=== PATIENT | female | born 1940 | race Caucasian/White ===

== ENCOUNTER 2017-11-25 09:30 | Inpatient (IN) | payer OTHER ==
[~2017-11-25] VITALS: Ht 162.6 cm; Wt 101.1 kg
[~2017-11-25 09:30] MED LIST: ACET-2247 PO; ALLO100T PO; B-COMPLEX PO; CALC600T12 PO; DUONEB IH; FLUT1AER IH; FOLI1TAB15 PO; FURO20TA6 PO; LEVO125T11 PO; METO100T14 PO; OXYGEN NASAL; POTA20PA3 PO; VALS1TAB75 PO; WARF1TAB83 PO; [UNRECOGNIZED DRUG - OTHER] PO
[2017-11-25] MEDS ORDERED: ASPIRIN 325 MG TABLET ONE (09:53)
[2017-11-25] MEDS ORDERED: METOPROLOL TARTRATE 1 MG/ML 5ML VIAL IV ONE ×2 (10:07→11:02)
[2017-11-25 10:14] LABS: BASOPHILS % (AUTO) 1.3 % (0.0-5.0); EOSINOPHILS % (AUTO) 0.8 % (0.0-8.0); HEMATOCRIT 47.5 % (36-48); MEAN CORPUSCULAR HGB CONC 34.2 g/dL (32.0-36.0); MEAN CORPUSCULAR VOLUME 87.8 fL (79-99); MONOCYTES % (AUTO) 7.6 % (3.0-13.0); NEUTROPHILS % (AUTO) 74.3 % (40.0-77.0); PLATELET COUNT (AUTO) 165 K/uL (130-400); RED CELL DISTRIBUTION WIDTH 14.4 % (11.0-15.5); WHITE BLOOD COUNT (AUTO) 7.8 K/uL (4.8-10.8)
[2017-11-25 10:31] LABS: INR 2.61 (0.85-1.15); PROTHROMBIN TIME 26.9 SEC (9.6-11.6)
[2017-11-25 10:35] LABS: POTASSIUM 4.6 mmol/L (3.5-5.1)
[2017-11-25 10:40] LABS: ALBUMIN 3.5 g/dL (3.5-5.0); BILIRUBIN,TOTAL 1.4 mg/dL (0.2-1.0); CREATININE 1.3 mg/dL (0.5-1.5); TOTAL PROTEIN, SERUM 6.8 g/dL (6.0-8.3)
[2017-11-25 10:55] LABS: B-TYPE NATRIURETIC PEPTIDE 85 pg/mL (0-100)
[2017-11-25] MEDS ORDERED: AMIODARONE HCL 900 MG in DEXTROSE 5%-WATER 500 ML IV NR (17:15)
[2017-11-25 19:05] VITALS: BP 163/95
[2017-11-25] MEDS ORDERED: METOPROLOL TARTRATE 1 MG/ML 5ML VIAL IV PRN (19:45)
[2017-11-25] MEDS ORDERED: METOPROLOL TARTRATE 25 MG TAB PO SCH (21:00)
[2017-11-25] MEDS ORDERED: SPIR50TA PO (21:53)
[2017-11-25] MEDS ORDERED: TRAM50TA4 PO (21:55)
[2017-11-25 23:05] VITALS: BP 139/90
[2017-11-26 03:05] VITALS: BP 149/83
[2017-11-26 04:44] LABS: HEMATOCRIT 42.1 % (36-48); MEAN CORPUSCULAR HEMOGLOBIN 31.2 pg (27.0-33.0); MEAN CORPUSCULAR HGB CONC 35.6 g/dL (32.0-36.0); MEAN CORPUSCULAR VOLUME 87.7 fL (79-99); PLATELET COUNT (AUTO) 143 K/uL (130-400); RED BLOOD CELL COUNT(AUTO) 4.81 MIL/uL (4.00-5.50); RED CELL DISTRIBUTION WIDTH 14.5 % (11.0-15.5); WHITE BLOOD COUNT (AUTO) 7.3 K/uL (4.8-10.8)
[2017-11-26 04:55] LABS: POTASSIUM 3.8 mmol/L (3.5-5.1)
[2017-11-26 08:06] VITALS: BP 166/97
[2017-11-26] MEDS ORDERED: ENOXAPARIN SODIUM 40 MG/0.4 ML SYRINGE SQ SCH (09:00)
[2017-11-26] MEDS ORDERED: ACETAMINOPHEN 325 MG TAB PO PRN (09:45)
[2017-11-26 11:52] VITALS: BP 150/75
[2017-11-26] MEDS ORDERED: WARFARIN SODIUM 1 MG TAB PO SCH (16:00)
[2017-11-26 17:24] VITALS: BP 171/97
[2017-11-26] MEDS ORDERED: ALBUTEROL SULFATE 0.083% 2.5 MG/3 ML INH IH SCH (18:30)
[2017-11-26 19:49] VITALS: BP 149/85
[2017-11-26] MEDS: METOPROLOL TARTRATE 50 MG TAB PO SCH (20:28)
[2017-11-26] MEDS ORDERED: OXYGEN NASAL SCH (21:00)
[2017-11-26] MEDS ORDERED: ALLOPURINOL 100 MG TABLET PO SCH (21:00)
[2017-11-26] MEDS ORDERED: CALCIUM 600 + VITAMIN D 400 TABLET PO SCH (21:00)
[2017-11-26] MEDS ORDERED: METOPROLOL TARTRATE 50 MG TAB PO SCH (21:00)
[2017-11-27] VITALS: BP 156/73
[2017-11-27 04:47] LABS: BASOPHILS % (AUTO) 0.6 % (0.0-5.0); EOSINOPHILS % (AUTO) 2.2 % (0.0-8.0); HEMATOCRIT 41.8 % (36-48); LYMPHOCYTES % (AUTO) 17.6 % (21.0-51.0); MEAN CORPUSCULAR HEMOGLOBIN 29.9 pg (27.0-33.0); MEAN CORPUSCULAR HGB CONC 34.2 g/dL (32.0-36.0); MEAN CORPUSCULAR VOLUME 87.4 fL (79-99); MONOCYTES % (AUTO) 6.9 % (3.0-13.0); NEUTROPHILS % (AUTO) 72.7 % (40.0-77.0); PLATELET COUNT (AUTO) 141 K/uL (130-400); RED BLOOD CELL COUNT(AUTO) 4.79 MIL/uL (4.00-5.50); RED CELL DISTRIBUTION WIDTH 14.2 % (11.0-15.5); WHITE BLOOD COUNT (AUTO) 6.8 K/uL (4.8-10.8)
[2017-11-27 04:58] LABS: INR 2.11 (0.85-1.15); PROTHROMBIN TIME 21.8 SEC (9.6-11.6)
[2017-11-27 05:07] VITALS: BP 160/79
[2017-11-27] MEDS ORDERED: ALBUTEROL SULFATE 0.083% 2.5 MG/3 ML INH IH PRN (07:00)
[2017-11-27] MEDS ORDERED: LEVOTHYROXINE 125 MCG TABLET PO SCH (07:30)
[2017-11-27 08:06] VITALS: BP 151/96
[2017-11-27] MEDS ORDERED: SPIRONOLACTONE 25 MG TAB PO SCH (09:00)
[2017-11-27] MEDS ORDERED: FOLIC ACID 1 MG TABLET PO SCH (09:00)
[2017-11-27] MEDS ORDERED: FOLIC ACID/VITAMIN B COMP W-C 1 MG CAPSULE PO SCH (09:00)
[2017-11-27] MEDS ORDERED: TRAMADOL HCL 50 MG TABLET PO SCH (09:00)
[2017-11-27] MEDS ORDERED: LOSARTAN/HYDROCHLOROTHIAZIDE 50-12.5MG TABLET PO SCH (09:00)
[2017-11-27] MEDS ORDERED: DILTIAZEM HCL 60 MG TABLET PO SCH (10:00)
[2017-11-27] MEDS: METOPROLOL TARTRATE 50 MG TAB PO SCH (10:21)
== END 2017-11-27 12:56 | disposition home or self-care (01) | DRG 309 ==
LOC: EDH 09:30 → EDHIP 14:30 → 2DH 18:08
PROVIDERS: ADMIT Family Medicine; ATTEND Family Medicine
DX: I48.0 Paroxysmal atrial fibrillation (principal); D68.59 Other primary thrombophilia; I82.509 Chronic embolism and thrombosis of unspecified deep veins of unspecified lower extremity; E11.9 Type 2 diabetes mellitus without complications; Z99.3 Dependence on wheelchair; E66.9 Obesity, unspecified; E78.5 Hyperlipidemia, unspecified; I10 Essential (primary) hypertension; J45.909 Unspecified asthma, uncomplicated; I25.10 Atherosclerotic heart disease of native coronary artery without angina pectoris; M19.90 Unspecified osteoarthritis, unspecified site; Z79.82 Long term (current) use of aspirin; Z88.8 Allergy status to other drugs, medicaments and biological substances; Z68.38 Body mass index [BMI] 38.0-38.9, adult; Z79.01 Long term (current) use of anticoagulants; Z79.899 Other long term (current) drug therapy; Z90.710 Acquired absence of both cervix and uterus; Z86.718 Personal history of other venous thrombosis and embolism; Z86.711 Personal history of pulmonary embolism; Z83.3 Family history of diabetes mellitus; Z82.49 Family history of ischemic heart disease and other diseases of the circulatory system
CPT/HCPCS: 36415; 71045; 80048; 80053; 82550; 82948; 83880; 84484; 85025; 85027; 85610; 85730; 93005; 94664; 99291; J0282; J3490; J7060

== ENCOUNTER → 2020-12-31 | Outpatient (CLI) | payer MEDICARE ==
[~2020-12-31] MED LIST changes: +ALBU0.63 IH; +APIX5TAB PO; +ASCO100033 PO; +CALC-1125 PO; -CALC600T12 PO; +CARB1DRO6 OP; +CHOL4PAC21 PO; -DUONEB IH; -FLUT1AER IH; +FLUT5POW4 MC; -FURO20TA6 PO; +ISOS10TA8 PO; +MAGN400C PO; +MELA10TA PO; +METO-408 PO; +NITR0.4T50 SL; -POTA20PA3 PO; +SPIR50TA PO; +TRAM50TA4 PO; -VALS1TAB75 PO; +VALS1TAB76 PO; +vitamin D PO
== END | disposition home or self-care (01) ==
LOC: LAB 11:31
PROVIDERS: ATTEND Internal Medicine Gastroenterology
DX: R19.7 Diarrhea, unspecified (principal)
CPT/HCPCS: 36415; 82656

== ENCOUNTER 2021-01-01 11:53 | Observation (INO) | payer MEDICARE ==
[~2021-01-01] VITALS: Ht 162.6 cm; Wt 92.8 kg
[2021-01-01] VITALS (7 sets, daily range): BP systolic 126–154; BP diastolic 61–77
[~2021-01-01 11:53] MED LIST changes: -ALBU0.63 IH; -APIX5TAB PO; -ASCO100033 PO; -CARB1DRO6 OP; -CHOL4PAC21 PO; -FLUT5POW4 MC; -ISOS10TA8 PO; -MAGN400C PO; -MELA10TA PO; -METO-408 PO; -NITR0.4T50 SL; -vitamin D PO
[2021-01-01] MEDS ORDERED: MECLIZINE HCL 25 MG TABLET ONE (12:11)
[2021-01-01] MEDS ORDERED: MECLIZINE HCL 25 MG TABLET PO SCH (12:30)
[2021-01-01 12:37] LABS: BASOPHILS % (AUTO) 0.4 % (0.0-5.0); EOSINOPHILS % (AUTO) 0.2 % (0.0-8.0); HEMATOCRIT 46.4 % (36-48); LYMPHOCYTES % (AUTO) 4.6 % (21.0-51.0); MEAN CORPUSCULAR HGB CONC 32.8 g/dL (32.0-36.0); MEAN CORPUSCULAR VOLUME 91.7 fL (79-99); MONOCYTES % (AUTO) 5.3 % (3.0-13.0); PLATELET COUNT (AUTO) 105 K/uL (130-400); RED BLOOD CELL COUNT(AUTO) 5.06 MIL/uL (4.00-5.50); RED CELL DISTRIBUTION WIDTH 14.7 % (11.0-15.5)
[2021-01-01 12:58] LABS: B-TYPE NATRIURETIC PEPTIDE 149 pg/mL (0-100)
[2021-01-01 13:31] LABS: ALBUMIN 3.5 g/dL (3.5-5.0); BILIRUBIN,TOTAL 2.2 mg/dL (0.2-1.0); CREATININE 1.3 mg/dL (0.5-1.5); POTASSIUM 4.6 mmol/L (3.5-5.1); TOTAL PROTEIN, SERUM 6.2 g/dL (6.0-8.3)
[2021-01-01] MEDS ORDERED: IOHEXOL-350 75 ML VIAL IV ONE (16:57)
[2021-01-01] MEDS ORDERED: ACETAMINOPHEN 325 MG TAB PO PRN (20:00)
[2021-01-01] MEDS: 0.9%NACL 1000ML 1,000 ML IV SCH (20:00)
[2021-01-01] MEDS ORDERED: HYDRALAZINE 20MG/ML VIAL IV PRN (20:00)
[2021-01-01] MEDS ORDERED: ONDANSETRON 4MG INJ IV PRN (20:00)
[2021-01-01] MEDS ORDERED: MECLIZINE HCL 25 MG TABLET PO PRN (20:00)
[2021-01-01] MEDS: HEPARIN 5,000 UNIT VIAL SQ SCH (21:00)
[2021-01-01] MEDS: FAMOTIDINE 20MG TAB PO SCH (21:00)
[2021-01-02] VITALS (9 sets, daily range): BP systolic 137–184; BP diastolic 65–81
[2021-01-02] MEDS: 0.9%NACL 1000ML 1,000 ML IV SCH (03:04)
[2021-01-02 06:11] LABS: BASOPHILS % (AUTO) 0.6 % (0.0-5.0); EOSINOPHILS % (AUTO) 1.2 % (0.0-8.0); HEMATOCRIT 42.6 % (36-48); LYMPHOCYTES % (AUTO) 17.3 % (21.0-51.0); MEAN CORPUSCULAR HGB CONC 32.9 g/dL (32.0-36.0); MEAN CORPUSCULAR VOLUME 91.4 fL (79-99); MONOCYTES % (AUTO) 10.7 % (3.0-13.0); PLATELET COUNT (AUTO) 80 K/uL (130-400); RED BLOOD CELL COUNT(AUTO) 4.66 MIL/uL (4.00-5.50); RED CELL DISTRIBUTION WIDTH 14.6 % (11.0-15.5)
[2021-01-02 06:19] LABS: HEMOGLOBIN A1C 5.5 % (4.0-6.0)
[2021-01-02 06:35] LABS: CREATININE 1.2 mg/dL (0.5-1.5); MAGNESIUM 1.8 mg/dL (1.80-2.40); PHOSPHORUS 2.7 mg/dL (2.5-4.9); POTASSIUM 3.5 mmol/L (3.5-5.1); THYROID STIMULATING HORMONE 1.07 uIU/mL (0.36-3.74)
[2021-01-02] MEDS: HEPARIN 5,000 UNIT VIAL SQ SCH ×2 (09:00→21:00)
[2021-01-02] MEDS ORDERED: APIX5TAB PO (12:51)
[2021-01-02] MEDS ORDERED: METO-408 PO (12:51)
[2021-01-02] MEDS ORDERED: CHOL4PAC21 PO (13:01)
[2021-01-02] MEDS ORDERED: MAGN400C PO (13:01)
[2021-01-02] MEDS ORDERED: MELA10TA PO (13:01)
[2021-01-02] MEDS ORDERED: ASCO100033 PO (13:01)
[2021-01-02] MEDS ORDERED: ISOS10TA8 PO (13:01)
[2021-01-02] MEDS ORDERED: FLUT5POW4 MC (13:14)
[2021-01-02] MEDS ORDERED: vitamin D PO (13:14)
[2021-01-02] MEDS ORDERED: CARB1DRO6 OP (13:14)
[2021-01-02] MEDS ORDERED: NITR0.4T50 SL (13:14)
[2021-01-02] MEDS ORDERED: ALBU0.63 IH (13:14)
[2021-01-02] MEDS ORDERED: NITROGLYCERIN 0.4 MG SL TAB SL PRN (16:00)
[2021-01-02] MEDS ORDERED: ACETAMINOPHEN 325 MG TAB PO PRN (16:00)
[2021-01-02] MEDS ORDERED: ARTIFICAL TEARS SOL 15 ML OP PRN (16:00)
[2021-01-02] MEDS ORDERED: FLUTICASONE PROPIONATE 50MCG/SPRAY 16 GM BOTTLE NS PRN (16:00)
[2021-01-02] MEDS: ISOSORBIDE MONONITRATE 20 MG TABLET PO SCH (16:27)
[2021-01-02] MEDS ORDERED: METOPROLOL SUCCINATE 50 MG TAB.SR.24H PO SCH (21:00)
[2021-01-02] MEDS: CEFTRIAXONE 1G VIAL IVP SCH (21:07)
[2021-01-02] MEDS: ALLOPURINOL 100 MG TABLET PO SCH (21:08)
[2021-01-02] MEDS: MAGNESIUM OXIDE 400 MG TABLET PO SCH (21:08)
[2021-01-02] MEDS: APIXABAN 5 MG TABLET PO SCH (21:08)
[2021-01-02] MEDS: ASCORBIC ACID 500 MG TAB PO SCH (21:08)
[2021-01-02] MEDS: CA 600MG+VIT D 400 UNIT TAB 1 TAB TABLET PO SCH (21:08)
[2021-01-02] MEDS: FAMOTIDINE 20MG TAB PO SCH (21:08)
[2021-01-02 21:23] LABS: APPEARANCE,URINE Clear (CLEAR); BILIRUBIN,URINE Negative (NEGATIVE); COLOR,URINE Yellow (YELLOW); GLUCOSE, URINE (UA) Negative (NEGATIVE); KETONES,URINE Trace mg/dL (NEGATIVE); LEUKOCYTE ESTERASE ,URINE Negative (NEGATIVE); NITRATE,URINE Negative (NEGATIVE); OCCULT BLOOD,URINE Negative (NEGATIVE); PH,URINE 5.5 (5.0-8.0); PROTEIN,URINE Negative (NEGATIVE); UROBILINOGEN,URINE 0.2 mg/dL (0.2-1.0)
[2021-01-02] MEDS: ALBUTEROL 0.042% 1.25MG/3ML IH PRN (21:32)
[2021-01-03] VITALS (11 sets, daily range): BP systolic 135–202; BP diastolic 66–97
[2021-01-03] MEDS: 0.9%NACL 1000ML 1,000 ML IV SCH (05:20)
[2021-01-03 05:47] LABS: HEMATOCRIT 40.9 % (36-48); MEAN CORPUSCULAR HGB CONC 33.5 g/dL (32.0-36.0); MEAN CORPUSCULAR VOLUME 89.7 fL (79-99); RED BLOOD CELL COUNT(AUTO) 4.56 MIL/uL (4.00-5.50); RED CELL DISTRIBUTION WIDTH 14.5 % (11.0-15.5)
[2021-01-03] MEDS ORDERED: LEVOTHYROXINE 125 MCG TABLET ONE (05:51)
[2021-01-03] MEDS: LEVOTHYROXINE 125 MCG TABLET PO SCH (06:26)
[2021-01-03 08:01] LABS: POTASSIUM 3.4 mmol/L (3.5-5.1)
[2021-01-03] MEDS: MELATONIN 20 MG PO SCH (09:00)
[2021-01-03] MEDS: CHOLESTYRAMINE PACKET 4 GM PACKET PO SCH (09:20)
[2021-01-03] MEDS: APIXABAN 5 MG TABLET PO SCH ×2 (09:21→19:50)
[2021-01-03] MEDS: ALLOPURINOL 100 MG TABLET PO SCH ×2 (09:21→19:51)
[2021-01-03] MEDS: ISOSORBIDE MONONITRATE 20 MG TABLET PO SCH (09:21)
[2021-01-03] MEDS: METOPROLOL SUCCINATE 50 MG TAB.SR.24H PO SCH ×2 (09:23→19:51)
[2021-01-03] MEDS: FAMOTIDINE 20MG TAB PO SCH (19:50)
[2021-01-03] MEDS: CA 600MG+VIT D 400 UNIT TAB 1 TAB TABLET PO SCH (19:50)
[2021-01-03] MEDS: ASCORBIC ACID 500 MG TAB PO SCH (19:50)
[2021-01-03] MEDS: MAGNESIUM OXIDE 400 MG TABLET PO SCH (19:51)
[2021-01-03] MEDS: CEFTRIAXONE 1G VIAL IVP SCH (19:51)
[2021-01-03] MEDS: ALBUTEROL 0.042% 1.25MG/3ML IH PRN (23:12)
[2021-01-04 03:12] VITALS: BP 156/74
[2021-01-04 05:17] LABS: ABG BASE EXCESS 0.2 mmol/L (-2.0-3.0); ABG HCO3 25.9 mmol/L (21.0-28.0); ABG OXYGEN SATURATION 98.4 % (95.0-99.0); ABG PCO2 46 mmHg (32-45)
[2021-01-04] MEDS: LEVOTHYROXINE 125 MCG TABLET PO SCH (05:43)
[2021-01-04 07:32] VITALS: BP 169/76
[2021-01-04] MEDS: CHOLESTYRAMINE PACKET 4 GM PACKET PO SCH (08:31)
[2021-01-04] MEDS: APIXABAN 5 MG TABLET PO SCH (08:32)
[2021-01-04] MEDS: METOPROLOL SUCCINATE 50 MG TAB.SR.24H PO SCH (08:33)
[2021-01-04] MEDS: ALLOPURINOL 100 MG TABLET PO SCH (08:33)
[2021-01-04] MEDS: ISOSORBIDE MONONITRATE 20 MG TABLET PO SCH (08:34)
[2021-01-04] MEDS: MELATONIN 20 MG PO SCH (08:43)
[2021-01-04 08:59] LABS: CREATININE 1.1 mg/dL (0.5-1.5); MAGNESIUM 2.1 mg/dL (1.80-2.40); POTASSIUM 4.5 mmol/L (3.5-5.1)
[2021-01-04] MEDS ORDERED: METO50TA9 PO (09:05)
[2021-01-04 10:48] VITALS: BP 142/76
== END 2021-01-04 14:00 | disposition home or self-care (01) ==
LOC: EDH 11:53 → OBSVTOIN 19:51 → EDHIP 19:51 → INTOOBSV 19:51 → 3AH 01-02 02:23
PROVIDERS: ADMIT Internal Medicine Pulmonary Disease; ATTEND Internal Medicine Pulmonary Disease
DX: I65.23 Occlusion and stenosis of bilateral carotid arteries (principal); I10 Essential (primary) hypertension; E03.9 Hypothyroidism, unspecified; J44.9 Chronic obstructive pulmonary disease, unspecified; K21.9 Gastro-esophageal reflux disease without esophagitis; I48.91 Unspecified atrial fibrillation; E66.9 Obesity, unspecified; G51.0 Bell's palsy; D68.9 Coagulation defect, unspecified; F19.90 Other psychoactive substance use, unspecified, uncomplicated; R29.700 NIHSS score 0; Z79.899 Other long term (current) drug therapy; Z86.718 Personal history of other venous thrombosis and embolism; Z95.828 Presence of other vascular implants and grafts; Z96.653 Presence of artificial knee joint, bilateral; Z79.01 Long term (current) use of anticoagulants; Z79.82 Long term (current) use of aspirin; Z86.711 Personal history of pulmonary embolism; Z68.35 Body mass index [BMI] 35.0-35.9, adult
CPT/HCPCS: 36415 ×4; 36600; 70450; 70496; 70498; 71045; 80048 ×3; 80053; 80061; 81003; 82435; 82803; 82947; 83036; 83605; 83735 ×2; 83880; 84100; 84132; 84295; 84443; 84484; 85018; 85025 ×2; 85027; 87077; 87088; 87186; 87804 ×2; 93005; 93880; 94640 ×2; 96361 ×2; 96372; 96374; 96375; 96376; 97039 ×2; 97116 ×3; 97161; 99285; G0378 ×64; G8978; G8979; G8980; G8981; G8982; G8983; J0360; J0696 ×2; J1644; J7030; Q9967

== ENCOUNTER → 2021-01-06 | Outpatient (CLI) | payer MEDICARE ==
[~2021-01-06] MED LIST changes: +ALBU0.63 IH; +APIX5TAB PO; +ASCO100033 PO; +CARB1DRO6 OP; +CHOL4PAC21 PO; +FLUT5POW4 MC; -FOLI1TAB15 PO; +IOHEXOL-350 75 ML VIAL IV ONE; +ISOS10TA8 PO; +MAGN400C PO; +MELA10TA PO; -METO100T14 PO; +METO50TA9 PO; +NITR0.4T50 SL; -SPIR50TA PO; -TRAM50TA4 PO; -VALS1TAB76 PO; -WARF1TAB83 PO; -[UNRECOGNIZED DRUG - OTHER] PO; +vitamin D PO
== END | disposition home or self-care (01) ==
LOC: RAH 09:56
PROVIDERS: ATTEND Internal Medicine Gastroenterology
DX: K57.30 Diverticulosis of large intestine without perforation or abscess without bleeding (principal); N28.1 Cyst of kidney, acquired; Z90.49 Acquired absence of other specified parts of digestive tract; Z90.710 Acquired absence of both cervix and uterus
CPT/HCPCS: 74178; Q9967

== ENCOUNTER 2024-05-22 07:52 | Day surgery (SDC) | payer MEDICARE ==
[~2024-05-22 07:52] MED LIST changes: -CHOL4PAC21 PO; +CHOL4POW4 PO; -IOHEXOL-350 75 ML VIAL IV ONE; -MELA10TA PO; +MELATONIN10 M1 PO
[2024-05-22] MEDS ORDERED: IOHEXOL 180 MG/ML 20 ML VIAL ONE (08:32)
--- NOTE | 2024-05-22 09:30 | NUR ---
RE: CT MYELOGRAM BY RADIOLOGIST PATIENT ARRIVED VIA W/C AND PROCEDURE EXPLAINED. PATIENT VERBALIZED UNDERSTANDING AND STATED SHE HAS A MORGAN FILTER PLACED 35 YEARS AGO AND IS CURRENTLY TAKING ELIQUIS FOR A BLOOD CONDITION. DR Ileana RODRIGUEZ NOTIFIED AND REQUESTED TO SPEAK WITH THE ORDERING PHYSICIAN TO HOLD ALL BLOOD THINNERS FOR THE PROCEDURE. DR Ramon SOLIS CALL AND SAID THE ELIQUIS COULD NOT BE STOPPED. DR DE LA CRUZ AND DR VIRGEN NOTIFIED OF PROCEDURE WHILE PATIENT ON ELIQUIS. BOTH RADIOLOGISTS SAID THE ELIQUIS NEEDS TO BE HELD PRIOR TO PROCEDURE. PROCEDURE CANCELLED AND OUTCOME EXPLAINED TO PATIENT. DR Ramon JENNINGS'S NOTIFIED OF CANCELATION DUE TO ELIQUIS.
[2024-05-22 10:17] LABS: INR 1.03 (0.85-1.15); PARTIAL THROMBOPLASTIN TIME 31.3 SEC (26.3-35.5); PROTHROMBIN TIME 11.1 SEC (9.6-11.6)
== END 2024-05-22 12:00 | disposition home or self-care (01) ==
LOC: RAH 07:52 → EDSTATUS 08:00 → DAH 12:00
PROVIDERS: ATTEND Family Medicine
DX: M54.16 Radiculopathy, lumbar region (principal); J44.9 Chronic obstructive pulmonary disease, unspecified; M10.9 Gout, unspecified; E03.9 Hypothyroidism, unspecified; I13.10 Hypertensive heart and chronic kidney disease without heart failure, with stage 1 through stage 4 chronic kidney disease, or unspecified chronic kidney disease; N18.9 Chronic kidney disease, unspecified; Z90.49 Acquired absence of other specified parts of digestive tract; Z79.01 Long term (current) use of anticoagulants; Z85.828 Personal history of other malignant neoplasm of skin; Z96.653 Presence of artificial knee joint, bilateral; Z79.899 Other long term (current) drug therapy; Z53.8 Procedure and treatment not carried out for other reasons
CPT/HCPCS: 36415; 85610; 85730; Q9965

== ENCOUNTER → 2024-11-25 | Outpatient (CLI) | payer MEDICARE ==
[~2024-11-25] MED LIST changes: -ISOS10TA8 PO; +ISOS10TA96 PO
--- NOTE | 2024-11-25 15:04 | HMCIMG ---
Lumbar spine 5 views including lateral flexion and extension Comparison Study: none History: LUMBAR RADICULOPATHY Findings: Exam of the lumbosacral spine demonstrates no evidence of fracture or subluxation. There are moderate spondylitic changes. The facet joints show moderate degenerative changes. Severe rotatory dextroscoliosis. Degenerative disc disease of all levels. Lateral flexion and extension demonstrates no abnormal motion. There is osteopenia. Inferior vena cava filter noted. Impression: Spondylitic changes and degenerative changes of the apophyseal joints as noted.
== END | disposition home or self-care (01) ==
LOC: RAH 13:45
PROVIDERS: ATTEND Physical Medicine & Rehabilitation
DX: M47.26 Other spondylosis with radiculopathy, lumbar region (principal); M51.16 Intervertebral disc disorders with radiculopathy, lumbar region; M41.86 Other forms of scoliosis, lumbar region; M85.88 Other specified disorders of bone density and structure, other site; M54.51 Vertebrogenic low back pain
CPT/HCPCS: 72114